=== PATIENT | male | born 1955 | race African-American/Black ===

== ENCOUNTER 2022-11-22 12:34 | Emergency (ER) | payer MEDICAID ==
[~2022-11-22] VITALS: Ht 172.7 cm; Wt 91.0 kg
[2022-11-22 12:43] VITALS: BP 113/66; PULSE 92; RESP 18; TEMP 98.5; O2SAT 99
[2022-11-22] MEDS ORDERED: IBUPROFEN 600MG TABLET PO ONE (13:30)
[2022-11-22] MEDS ORDERED: NAPR-1176 MT (15:55)
== END 2022-11-22 17:16 | disposition home or self-care (01) ==
LOC: ER 12:34
DX: M79.602 Pain in left arm (principal); J45.909 Unspecified asthma, uncomplicated
CPT/HCPCS: 93971; 99284